=== PATIENT | female | born 1995 | race American Indian/Alaskan Native ===

== ENCOUNTER 2016-11-23 22:43 | Inpatient (IN) | payer OTHER ==
[~2016-11-23 22:43] MED LIST: Acetaminophen 325 MG Tab PO PRN; Carboprost Tromethamine 250 MCG/1 ML Amp IM PRN; Lactated Ringers 500 ML IV ONE; Lidocaine 1% 30 ML SDV INJECT PRN; Methylergonovine 0.2 MG/1 ML Amp IM PRN; Misoprostol 400 MCG (4 X 100 MCG TAB) RECTAL PRN; Sodium Chloride 0.9% 10 ML Syringe FLUSH PRN; fentaNYL 100 MCG/2 ML SDV IVPUSH PRN
--- NOTE | 2016-11-23 23:13 | HP ---
CHIEF COMPLAINT: Increased force and frequency of contractions. HISTORY OF PRESENT ILLNESS: The patient is a 21-year-old, 2, para 0-0-1 - 0, currently at 39 and 3/7 weeks of her intrauterine based on a 23- week ultrasound. The patient had presented for first care visit thinking she was approximately 12 weeks along and discovered to be much further along than that. She has had excellent care since that time. Reports that she went out for a supper gathering earlier today and around 5:00 or 6:00 she started having regular contractions that gradually have become closer and stronger together. She also felt that she was having some leakage of fluid, but no vaginal bleeding. movement has been good. Upon presentation to the hospital, nurses had checked her and nitrazine testing was equivocal. They felt that she was 100% effaced, but really could not tell exactly what her cervical dilatation was and tried to reach the patient's PCP for admission and she was unavailable, so they contacted myself and I came in for admission. The patient denies any sort of preeclampsia symptoms. No chest pain or shortness of breath. No blurry vision. No headaches. No change in swelling. No symptoms of any bladder infections or dysuria. No symptoms of any vaginal infections. Overall, is doing quite well. records reviewed, and she is blood type O positive, antibody screen negative, rubella immune, syphilis serology is nonreactive, hepatitis B negative, HIV negative, gonorrhea and chlamydia negative, hepatitis C negative, wet prep was negative. Glucose tolerance test of 122. Last hemoglobin near [place] was 9.8. Group B strep is negative. She did receive her Tdap and influenza vaccines. MEDICATIONS: 1. vitamin. 2. Iron. Denies other specific medications during this . ALLERGIES: No known drug allergies. PAST MEDICAL HISTORY: She has never smoked. She has a history of MRSA infections on the trunk, history of chickenpox when she was younger. PAST SURGICAL HISTORY: Laparoscopic appendectomy as an adult. FAMILY HISTORY: Father, maternal grandmother, and paternal grandfather with diabetes. Eczema in a cousin. Paternal grandfather with heart attack. Negative family history for allergies, asthma, bleeding problems, and anesthesia problems. SOCIAL HISTORY: She lives in [place] with her boyfriend and father of the baby, Donn Cross. 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 Donn works as a vehicle mechanic. He does use chewing tobacco and reports that he is otherwise healthy. His mother is diabetic. Otherwise, family history is negative. REVIEW OF SYSTEMS: As per the history of present illness. No recent fever, chills, nausea, vomiting, diarrhea, constipation, chest pain, shortness of breath, dysuria, irregular bowel habits, or any other problems to report. PHYSICAL EXAMINATION: Vital Signs: Blood pressure 132/71, pulse of 85, and temperature is 98.7. HEENT: Grossly unremarkable. Neck: Supple without adenopathy. HEART: Regular without murmur. Lungs: Clear to auscultation bilaterally. Abdomen: Gravid, soft, nontender. heart tones are tracing at 130 beats per minute at baseline. Moderate rkrc-cc-ysis variability. Initially nonreactive; however, after she drank a glass of water, we have a category 1 tracing. [place] is not picking up all of the contractions, but they appear to be every 3 to 5 minutes. Cervical exam per my check, she is 5 cm dilated, 100% effaced, -3 station. Bag of water remains intact. Baby is well applied to the majority of the cervix. Extremities: Full range of motion. No obvious edema neurologically. No focal deficits. Reflexes are 2+ to 3+ and equal. Skin: Warm, dry, appropriate for race. PSYCHIATRIC: She is appropriate with no obvious unusual behaviors. ASSESSMENT: 1. A 39 and 3/7th weeks' based on 23-week ultrasound. 2. 2, para 0-0-1-0. 3. Active labor. 4. Late and limited care. 5. Anemia of . 6. History of spontaneous x1. 7. Blood type O positive, rubella immune, and group B strep negative. PLAN: The patient was hoping to get through labor without an intrathecal and therefore I have offered to leave the bag of water intact at this time as that may help her achieve this goal. We will get her admitted to Labor and Delivery room, IV started, and await labs. Intrathecal I anticipate would be available to her. We could also perform artificial rupture at any time to help the labor along if she would like. Otherwise, she can get up and use the tub and ambulate fairly freely, and we will be hoping and planning for vaginal delivery. She and her boyfriend's questions have been answered at this time, and they deny any specific request. NIKI /[id number] LETY
[2016-11-24] MEDS: Ondansetron 4 MG/2 ML SDV IV PRN ×2 (01:30→07:05)
[2016-11-24] MEDS: Lactated Ringers 1,000 ML IV SCH ×2 (01:44→05:27)
[2016-11-24] MEDS ORDERED: Oxytocin/Normal Saline 30 UNIT/500 ML BAG IV SCH (06:45)
--- NOTE | 2016-11-24 08:10 | PN ---
DATE: 11/24/2016 SUBJECTIVE: The patient is resting comfortably with her intrathecal now in place. No leakage of fluid or bloody show as of yet. movement has been good. OBJECTIVE: Vital signs have remained stable and she is afebrile. heart tones are tracing at 140 beats per minute at baseline. Moderate nrms-jz-ndjy variability. Intermittent periods of nonreactivity and then areas of category 1 tracing. No decelerations. No variables. Contractions are tracing every 3 minutes consistent now on the monitoring strip. Cervix is 7 cm dilated, 95% to 100% effaced, bag of water is intact and ruptured with [place] with return of clear fluid. vertex palpates to be in PEDRO position. ASSESSMENT: 1. A 39 and 4/7th weeks in active spontaneous labor. 2. Anemia of . 3. Late care. 4. Remainder of diagnoses per the history. PLAN: The patient now has an intrathecal in place and we will continue to expectantly manage for now. On next check, if her cervix has not made sufficient progress, anticipate starting some Pitocin. MOD /[id number] LETY
[2016-11-24] MEDS ORDERED: Benzocaine/Menthol 20%-0.5% Spray 56 GM Canister TOP PRN (10:35)
[2016-11-24] MEDS ORDERED: Simethicone 80 MG Tab.Chew PO PRN (10:35)
[2016-11-24] MEDS: Docusate Sodium 100 MG Cap PO PRN (22:24)
[2016-11-24] MEDS: Ibuprofen 800 MG Tab PO PRN (22:25)
[2016-11-25] MEDS: Ibuprofen 800 MG Tab PO PRN ×2 (08:39→21:18)
[2016-11-25] MEDS: Prenatal Multivitamin with Calcium/Folic Acid/Iron Tab PO SCH (08:39)
--- NOTE | 2016-11-25 09:57 | PN ---
DATE: 11/25/2016 day #1. SUBJECTIVE: A 21-year-old 1, now para 1, status post outlet vacuum assisted vaginal delivery yesterday morning. Reports that she has been doing fairly well. Just feels really tired today. Voiding without difficulties. Passing flatus, has not yet had a bowel movement. Reports the bleeding has slowed down significantly since yesterday. No chest pain or shortness of breath. No symptoms of preeclampsia. Baby is doing well and she is having some difficulties with getting the baby to latch well for nursing. OBJECTIVE: GENERAL: Well, but tired appearing. Vital signs: Temperature is 97.8, pulse 93, blood pressure 127/65, and respiratory rate of 18. Heart: Regular without obvious murmur. Lungs: Clear to auscultation bilaterally. Abdomen: Soft without masses. Fundus is firm and 3 fingers below the umbilicus, slightly deviated off to the right. Extremities: No edema, erythema, or tenderness noted. ASSESSMENT: 1. Status post vaginal delivery day #1. 2. Status post repair of vaginal sidewall laceration and first-degree laceration. 3. mother. PLAN: Anticipate continued normal care and discharge home tomorrow. Consult forestry consultant today. Nurses will notify me if there are any other problems or concerns. [facility] /[id number]
--- NOTE | 2016-11-25 10:03 | DEL ---
DATE: 11/24/2016 PREPROCEDURE DIAGNOSES: 1. A 39-4/7th weeks intrauterine based on 23-week ultrasound. 2. 2, para 0-0-1-0. 3. History of spontaneous x1. 4. Anemia of . 5. Late and limited care. 6. Blood type O positive. Rubella immune. Group B strep negative. 7. Terminal bradycardia. POSTPROCEDURE DIAGNOSES: 1. A 39-4/7th weeks intrauterine based on 23-week ultrasound. 2. 2, para 1-0-1-1. 3. History of spontaneous x1. 4. Anemia of . 5. Late and limited care. 6. Blood type O positive. Rubella immune. Group B strep negative. 7. Terminal bradycardia. 8. Status post outlet vacuum-assisted vaginal delivery because of bradycardia. Terminal meconium noted. 9. First-degree laceration repair. 10.Left vaginal sidewall laceration repair. BRIEF HISTORY: A 21-year-old with the above-listed diagnoses, presented to the hospital in active stage of labor. Bag of water was intact and she was 5 cm dilated. After a progressing in labor to 7 cm, she received her first intrathecal and then had artificial rupture of membranes around 4 in the morning. She then went on to have a second intrathecal when her cervix was just a slight rim because she was in too much pain to focus on pushing successfully. She was allowed to labor down for a little while and then while having adequate anesthesia, but also adequate sensation for pushing. She pushed for about an hour and a half prior to actual delivery. Maternal pushing effort was excellent; however, overall quality was poor, so this did take a little bit longer than would have been anticipated. Otherwise, baby was also found to be slightly asynclitic which would have contributed to the need for increased pushing time and effort. The patient had been previously advised the potential need for vacuum delivery and we had discussed the indications, risks, benefits, and alternatives. We had discussed that she had adequate anesthesia with her intrathecal still on board. Her bladder had been emptied for about 150 mL of clear urine just prior to starting pushing. Indication in this case became the terminal bradycardia and we had turned the Pitocin up to 6 and we were coaching through contractions and she was still able to have good effort; however, with baby being asynclitic. Those pushes end up not be as effective as they should have been. The vacuum use was a Kiwi with a mushroom cap. We kept the pressure in the green zone and only pulled for about half of a contraction for total application time of about 10 seconds and had a successful delivery without any complications. Exit strategy was readily available and there was a verbal consent from the patient and her boyfriend prior to the procedure. PROCEDURE IN DETAIL: The patient delivered a viable female in the OA position with outlet vacuum assistance over intact perineum. Baby had been for quite some time and we were having intermittent terminal bradycardia, but at that time, it was down into the 60s and 70s, and sustained; therefore, vacuum applied and with pulling through about half of a contraction, we had successful vaginal delivery. Infant's mouth and nose were bulb suctioned. Three-vessel umbilical cord doubly clamped and cut and baby taken over to the warmer for further evaluation because of the noted terminal meconium. Cord blood sample was then obtained and placenta delivered by gentle cord traction and concomitant uterine massage inspected and intact. Labia and vagina inspected and she had a left sidewall laceration that was repaired with 3 - 0 Vicryl suture in a running locked fashion. She also had a first-degree posterior laceration which was repaired in standard fashion without difficulty. Overall mother tolerated procedure well. ESTIMATED BLOOD LOSS: 400 mL. COMPLICATIONS: None. DISPOSITION: Remain in the delivery room with baby at this time. [facility] /[id number] LETY
[2016-11-25] MEDS: Docusate Sodium 100 MG Cap PO PRN (21:19)
[2016-11-26] MEDS: Prenatal Multivitamin with Calcium/Folic Acid/Iron Tab PO SCH (09:35)
[2016-11-26] MEDS: Docusate Sodium 100 MG Cap PO PRN (09:35)
[2016-11-26] MEDS: Ibuprofen 800 MG Tab PO PRN (09:36)
[2016-11-26 11:04] VITALS: BP 123/70
--- NOTE | 2016-12-03 02:33 | DISCH ---
ADMITTING DIAGNOSES: 1. A 39-3/7 weeks' intrauterine based on 23-week ultrasound. 2. 2, para 0-0-1-0. 3. Blood type O positive. 4. Rubella immune. Group B Streptococcus negative. 5. History of spontaneous x1. 6. Anemia of . 7. Late care. DISCHARGE DIAGNOSES: 1. A 39-3/7 weeks' intrauterine based on 23-week ultrasound. 2. 2, para 1-0-1-1. 3. Blood type O positive. 4. Rubella immune. Group B Streptococcus negative. 5. History of spontaneous x1. 6. Anemia of . 7. Late care. 8. Terminal bradycardia. PROCEDURES PERFORMED: Intrathecal x2, artificial rupture of membranes, vacuum- assisted vaginal delivery at outlet station, first-degree laceration with repair and left lateral sidewall laceration repaired. BRIEF HISTORY: A 21-year-old female admitted to the hospital with the above- listed diagnoses. She progressed through labor quite nicely and had about 15 hours of stage I, pushed for an hour and a half and placenta delivered after about 3 minutes. See history and physical for full details as well as delivery note. Overall, delivery and labor course were uncomplicated until the baby came down to and then we had recurrent episodes of bradycardia and at one point not recovering when the head was already , so vacuum assistance was applied for less than 1 pull in order to expedite delivery. Baby did well with scores of 9 and 9. weight 3405 g, 7 pounds 8 ounces. HOSPITAL COURSE: Hospital course since delivery has been good. The patient has been ambulating, tolerating regular diet. Denies any chest pain or shortness of breath, has had no significant heavy bleeding. No symptoms of preeclampsia. No other reported complaints. She is and that seems to be going well. DISCHARGE CONDITION: Good. PHYSICAL EXAMINATION: Vital Signs: Temperature is 98.9, pulse is 97, blood pressure 123/70, respiratory rate of 16, O2 saturations 99% on room air. Heart: Regular without any murmur. Lungs: Clear to auscultation bilaterally. Abdomen: Soft without masses. Fundus is firm and below the umbilicus. Extremities: Trace edema. No erythema or tenderness noted. LABORATORY DATA: Show an admission hemoglobin of 12.4 and a discharge of 10.1. MEDICATIONS: 1. Ibuprofen 600 mg every 6 hours as needed for pain. 2. Tylenol 650 mg every 6 hours as needed for pain. 3. Colace 100 mg twice daily as needed for constipation. 4. Iron 325 mg twice daily. 5. vitamin continue 1 daily. DISPOSITION: Home with family. FOLLOWUP: Appointment with Dr. Santiago in 6 weeks for routine examination. INSTRUCTIONS: Routine post vaginal delivery instructions were provided including reasons to return to the clinic or the hospital such as increased vaginal bleeding, foul-smelling drainage, discharge, fever, chills or any other concerns if any of those arise. Her questions were answered and she was comfortable with the treatment plan. [facility] /[id number] [place]
== END 2016-11-26 14:30 | disposition home or self-care (01) | DRG 775 ==
LOC: DL.OBCHECK 22:43 → UNDOADMOB 22:48 → DL.OB 22:48 → OBSVTOIN 11-24 09:49
PROVIDERS: ADMIT Family Medicine; ATTEND Family Medicine
PROC: 10D07Z6 Extraction of Products of Conception, Vacuum, Via Natural or Artificial Opening (ICD-10-PCS; principal; 2016-11-24)
PROC: 0UQMXZZ Repair Vulva, External Approach (ICD-10-PCS; 2016-11-24)
DX: O77.0 Labor and delivery complicated by meconium in amniotic fluid (principal); O70.0 First degree perineal laceration during delivery; O66.5 Attempted application of vacuum extractor and forceps; Z3A.39 39 weeks gestation of pregnancy
CPT/HCPCS: 36415; 85014; 85018; 85027; A9270-GY; J2405; J2590; J7120

== ENCOUNTER 2018-09-27 03:33 | Inpatient (IN) | payer MEDICAID, OTHER ==
[2018-09-27] MEDS ORDERED: Lidocaine 1% 30 ML SDV INJECT PRN (04:50)
[2018-09-27] MEDS ORDERED: Lactated Ringers 500 ML IV ONE (04:50)
[2018-09-27] MEDS ORDERED: Ondansetron 4 MG/2 ML SDV IV PRN (04:50)
[2018-09-27] MEDS ORDERED: Tranexamic Acid 1,000 MG in Sodium Chloride 0.9% 100 ML IV PRN (04:50)
[2018-09-27] MEDS ORDERED: Carboprost Tromethamine 250 MCG/1 ML Amp IM PRN (04:50)
[2018-09-27] MEDS ORDERED: Acetaminophen 325 MG Tab PO PRN (04:50)
[2018-09-27] MEDS ORDERED: Misoprostol 400 MCG (4 X 100 MCG TAB) RECTAL PRN (04:50)
[2018-09-27] MEDS ORDERED: Sodium Chloride 0.9% 10 ML Syringe FLUSH PRN ×2 (04:50→09:34)
[2018-09-27] MEDS ORDERED: Methylergonovine 0.2 MG/1 ML Amp IM PRN (04:50)
[2018-09-27] MEDS ORDERED: Oxytocin/Normal Saline 30 UNIT/500 ML BAG IV SCH (05:00)
[2018-09-27] MEDS: Lactated Ringers 1,000 ML IV SCH ×2 (05:10→05:40)
[2018-09-27] MEDS ORDERED: EPINEPHrine 1 MG/ML SDV ONE (05:22)
[2018-09-27] MEDS ORDERED: fentaNYL 100 MCG/2 ML SDV ONE (05:22)
--- NOTE | 2018-09-27 05:56 | PCM.PRNOTE ---
- Free Text/Narrative Note: Requested to provide analgesia to full term patient in severe pain. Upon entering the room, patient is sitting on edge of bed complaining of severe abdominal/pelvic pain and discomfort. Procedure was discussed with patient including adverse outcomes and expectations. Pt consented to analgesia, SAB/ IT. Pt placed into a proper sitting position. Landmarks for SAB/IT were identified and marked. Hands were washed and appropriate PPE was applied. Back was prepped with betadine x3. A sterile, transparent, fenestrated drape was applied. Excess betadine was removed. Using 3 mL of a 1% lidocaine solution , a skin wheel was placed at the L2/L3 interspace. A 24 ga (4 inch) [place] spinal needle was inserted until positive for CSF. Negative for heme or paresthesias. Injected fentanyl 30 mcg, sufentanil 25 mcg, and 7.5 mg of a 0.75 % bupivacaine solution with an epi wash. Pt was placed left lateral position for approximately 20 minutes. There were zero complications or adverse outcomes. Will continue to monitor. Procedure Date & Time: 09/27/18 [id number]
[2018-09-27] MEDS ORDERED: Benzocaine/Menthol 20%-0.5% Spray 56 GM Canister TOP PRN (09:34)
[2018-09-27] MEDS ORDERED: Zolpidem 5 MG Tab PO PRN (09:34)
[2018-09-27] MEDS ORDERED: Simethicone 80 MG Tab.Chew PO PRN (09:34)
[2018-09-27] MEDS ORDERED: Measles, Mumps & Rubella Vaccine 0.5 ML SDV SUBCUT ONE (09:34)
[2018-09-27] MEDS ORDERED: Oxytocin 10 Units/1 ML SDV IM PRN (09:34)
[2018-09-27] MEDS: Ibuprofen 800 MG Tab PO PRN ×2 (12:02→21:08)
[2018-09-27] MEDS: Docusate Sodium 100 MG Cap PO PRN (21:07)
--- NOTE | 2018-09-28 08:34 | HP ---
PATIENT IDENTIFICATION: Virginia Willingham is a 22-year-old, G3, P1-0-1-1, intrauterine at 38 and 6/7 weeks by a 19 and 2/7-week ultrasound, who presents with contractions. HISTORY OF PRESENT ILLNESS: The patient states contractions started the day prior to admission, and earlier in the week, but got stronger around midnight on the date of admission to the point that they were felt in the lower abdomen, coming every 4 to 5 minutes and getting worse over time. Upon presentation, she rates her pain as 7/10, and they are severe enough that she is breathing through them. She denies any spotting, bleeding, or leaking. To put this in context, she is rubella nonimmune, has had later care and is GBS negative. She feels her contractions in the lower abdomen radiating to the back. Records were called for, reviewed as below, and supplemented by the patient's history. OBSTETRICAL HISTORY: 1. On 11/24/2016, delivered at 39 and 4/7 weeks, vacuum-assisted vaginal delivery, female, weighing 3405 g with terminal bradycardia that was not recovering. 2. Spontaneous AB at 9 and 3/7 weeks. ANTEPARTUM LABORATORY DATA: ABO blood type O positive. Negative antibody. Rubella equivocal and labeled as nonimmune in the problem list. Syphilis antibody is nonreactive. Negative hepatitis B surface antigen. Hep C, HIV, GC and chlamydia, and wet prep within normal limits. One-hour GTT was 77 on 06/30/2018, with hemoglobin 11.2 with platelets 306. GBS was negative on 09/09/2018. ALLERGIES: None. MEDICATIONS: vitamins daily. PAST MEDICAL/PAST SURGICAL HISTORY: Remarkable for laparoscopic appendectomy in 11/2011 and having history of MRSA positive cultures x3 on trunk/skin. History of chickenpox in the past. FAMILY HISTORY: Diabetes in paternal grandfather, father, and maternal grandmother. Eczema runs in the family. Heart attack in paternal grandfather with negative family history of allergies, asthma, bleeding problems, anesthesia problems, or defects. SOCIAL HISTORY: The patient lives in [place] with Thomas (her daughter) and Donn Cross. This will be their second child together, and they are engaged. She denies any alcohol, tobacco, or drug use. REVIEW OF SYSTEMS: The patient denies any headaches, visual changes, or upper abdominal pain. She denies any cough, cold, runny nose, or fever. She states she has some minimal swelling in the lower extremities and hands at times. Otherwise, review of systems was fully reviewed and felt to be noncontributory. OBJECTIVE: Vital Signs: Blood pressure 141/85, heart rate 95, and temperature 97.7 Appearance: Female, appears her stated age, acting appropriate for age, nontoxic appearance. Answering questions appropriately in between contractions, but breathing through them. HEENT: Head is atraumatic. EOMs intact. PERRLA. No scleral icterus. No obvious otorhinorrhea. Mucous membranes are moist. Neck: No obvious tenderness. Lungs: Clear to auscultation bilaterally. No increased work of breathing. Heart: S1 and S2. Regular rate and rhythm. Abdomen: Gravid. Perry's indeterminate. Nontender and nondistended. Bowel sounds positive. No other organomegaly, pulsatile masses, or hernias. No rebound, rigidity, or guarding. Genitourinary: Normal external female genitalia. Normal position and presentation of the urethra. Vaginal: Reveals to be 8 cm, 100% effaced, vertex suspected with bulging bag of water. Extremities: Trace pedal edema. Deep tendon reflexes 1 to 2/4 bilaterally and symmetric in the lower extremities. Psychiatric: Mood and affect are congruent. Judgment and insight are intact. Skin: Without any cyanosis, clubbing, or jaundice. Pelvic: heart tones in the 130s range. Accelerations have been noted. Tocometer reveals contractions every 2 to 4 minutes apart. LABORATORY DATA: PIH panel is pending with labs revealing white cell count 10.7, hemoglobin 11.8, and platelets 246. Urinalysis: Protein is negative, trace blood, small leukocyte esterase, moderate epithelial cells, few bacteria, 0 to 5 red and white cells per high-power field. Pending other labs for the PIH panel. ASSESSMENT: 1. Intrauterine at 38 and 6/7 weeks by a 19 and 2/7-week ultrasound. 2. Active labor with advanced cervical dilation. 3. Gestational hypertension versus preeclampsia. Labs are currently pending. No signs or symptoms of severe preeclampsia at this point in time. We will continue to follow clinically and closely. 4. Rubella nonimmune. 5. Later care. 6. Maternal anemia with hemoglobin 11.8 today. 7. Group B streptococcus negative. 8. 3, para 1-0-1-1. PLAN: The patient will be admitted. She is requesting intrathecal, and this has been called for and to be given as soon as [facility]IMARY arrives and evaluates the patient. We will continue to follow closely. Did discuss with her the potential artificial rupture of membranes thereafter, and she is requesting this as well. Otherwise, we will continue to follow clinically and closely. The patient understands and agrees with the above treatment plan. [facility] /[id number]
[2018-09-28] MEDS: Ibuprofen 800 MG Tab PO PRN (08:37)
[2018-09-28] MEDS: Docusate Sodium 100 MG Cap PO PRN (08:37)
[2018-09-28 08:43] VITALS: BP 121/65
--- NOTE | 2018-09-28 08:48 | PN ---
DATE: 09/27/2018 SUBJECTIVE: The patient is comfortable status post intrathecal, was going to wait to get her bag of water broken until her fiance got here, but he has not been able to find a ride and may have fallen asleep. Therefore, she is requesting artificial rupture of membranes. OBJECTIVE: Pelvic: heart tones in the 135 range. Tocometer reveals contractions every 2 to 4 minutes. Vital Signs: Blood pressure 127/73. Vaginal: Reveals to be 9 cm, 100% effaced, 0 station, vertex suspected. Artificial rupture of membranes was done after discussion with the patient yielding copious amounts of clear fluid. ASSESSMENT AND PLAN: Nearing second stage of labor, now status post artificial rupture of membranes. I did discuss with the patient following clinically and closely as well as awaiting second stage of labor and consider pushing around at that time. The patient understands and agrees with the above treatment plan. [facility] /[id number]
[2018-09-28] MEDS ORDERED: Prenatal Multivitamin with Calcium/Folic Acid/Iron Tab PO SCH (09:00)
--- NOTE | 2018-09-28 09:15 | DEL ---
DATE: 09/27/2018 PREOPERATIVE DIAGNOSES: 1. Intrauterine at 38 and 6/7 weeks by a 19 and 2/7-week ultrasound. 2. Active labor upon admission. 3. Advanced cervical dilation upon admission. 4. Gestational hypertension, suspected. 5. Rubella nonimmune. 6. Later care. 7. Maternal anemia with hemoglobin 11.8 upon admission. 8. Group B Streptococcus negative. 9. 3, para 1-0-1-1. POSTOPERATIVE DIAGNOSES: 1. Intrauterine at 38 and 6/7 weeks by a 19 and 2/7-week ultrasound, delivered. 2. Active labor upon admission. 3. Advanced cervical dilation upon admission. 4. Gestational hypertension, suspected. 5. Rubella nonimmune. 6. Later care. 7. Maternal anemia with hemoglobin 11.8 upon admission. 8. Group B Streptococcus negative. 9. 3, para 1-0-1-1. 10.Second-degree perineal laceration, repaired. PROCEDURES PERFORMED: 1. Nonstress test. 2. Artificial rupture of membranes. 3. Spontaneous vaginal delivery. 4. Second-degree perineal laceration, repaired. ANESTHESIA/ANALGESIA: The patient did receive an intrathecal in the first stage of labor. She received 1% lidocaine without epinephrine, approximately 3 mL, for a local repair with good anesthetic result. FINDINGS: Female. scores of 6 and 8. Weight pending. ESTIMATED BLOOD LOSS: 300 mL. SUMMARY OF EVENTS: The patient is a 22-year-old, G3, P1-0-1-1, intrauterine at 38 and 6/7 weeks by a 19 and 2/7-week ultrasound, admitted in active labor with advanced cervical dilation. She had hypertensive episodes. Nothing in the severe range without any headaches, visual change, or upper abdominal pain. Preeclampsia workup was done without any significant concern for diagnosis of preeclampsia with a protein-creatinine ratio of 0.15 and normal platelets and HELLP labs being negative. She requested intrathecal shortly after initial evaluation, this was subsequently given, and she was followed closely thereafter. She wished to wait until her male partner arrived prior to artificial rupture of membranes. This was subsequently attempted. However, about 2 hours after this, she requested artificial rupture of membranes. This was subsequently done. She was found to be around near-complete at that point in time. She was followed closely thereafter, started having feelings of contraction/urge to push, and I was called to the room as she was found to be complete. I donned sterile gown and gloves, and prior to this, nurse did a catheterization of the bladder yielding yellow-colored urine approximately 200 mL. Subsequently, with the patient pushing with contractions, vertex was delivered in PEDRO presentation, followed by anterior and posterior shoulder and rest of the infant without difficulty. Mouth and nares were suctioned, and infant was resuscitated on mother's abdomen/chest. Initially, good cry, color, and tone were noted. However, the infant did have some apnea and appeared cyanotic. Subsequently, the cord was doubly clamped and cut, and the was brought over to the team/warmer for further evaluation and management. After this was done, attention was made back to the patient; and approximately, 10 mL of cord blood was obtained for labs. Placenta was then delivered with gentle cord traction and fundal massage. The perineum, vagina, and perirectal areas were then examined and noted to have a second-degree perineal laceration that was subsequently anesthetized and repaired in the usual fashion using 3-0 Vicryl. Mother and are currently stable at the time of dictation. [facility] /[id number]
--- NOTE | 2018-09-28 10:27 | OBOUT ---
DATE: 09/27/2018 DATE AND TIME OF NST: Date: 09/27/2018 Time: 4:17 to 4:33. REASON FOR NST: 1. Intrauterine at 38 and 6/7 weeks by a 19 and 2/7-week ultrasound. 2. Active labor with advanced cervical dilation. 3. Gestational hypertension versus preeclampsia. 4. Rubella nonimmune. 5. Later care. 6. Maternal anemia with hemoglobin 11.8 upon admission. 7. Group B streptococcus negative. 8. 3, para 1-0-1-1. NST INTERPRETATION: During this time period, heart tone baseline is approximately 130 and there are at least two 15 x 15 beat per minute accelerations making this strip reactive. It is also noted to be reassuring. Tocometer reveals potential 6 contractions during this time period felt by the patient. ASSESSMENT: 1. Nonstress test, reactive and reassuring. 2. Tocometer with contractions. PLAN: Please see admit history and physical for further details. [facility] /[id number]
[2018-09-28] MEDS ORDERED: EPINEPHrine 1 MG/ML SDV ONE (10:59)
[2018-09-28] MEDS ORDERED: Bupivacaine 0.75%/D5W 2 ML Amp ONE (10:59)
[2018-09-28] MEDS ORDERED: fentaNYL 100 MCG/2 ML SDV ITHECAL ONE (10:59)
--- NOTE | 2018-09-28 10:59 | PCM.DCSUM1 ---
Discharge Summary - Hospital Course Free Text/Narrative:: 22-year-old, now , PPD #1 status post at 38w6d Diagnosis: Stroke: No - Discharge Data Discharge Date: 09/28/18 Discharge Disposition: Home, Self-Care 01 Condition: Good - Patient Summary/Data Operative Procedure(s) Performed: None Complications: None Consults: None Labs Pending at D/C: None Recommended Follow-up Testing/Procedures: None Planned Operative Procedure(s) after DC: None Hospital Course: Unremarkable. Please see subjective section. - Patient Instructions Diet: Regular Diet as Tolerated, Drink 8-10+ Glasses/Day Activity: As Tolerated Driving: May Drive Today Showering/Bathing: May Shower Notify Provider of: Fever, Increased Pain, Nausea and/or Vomiting - Discharge Plan *PRESCRIPTION DRUG MONITORING PROGRAM REVIEWED*: Not Applicable *COPY OF PRESCRIPTION DRUG MONITORING REPORT IN PATIENT FELICIA: Not Applicable Home Medications: Home Meds Ferrous Sulfate [Iron] 325 mg PO DAILY 11/23/16 [History] PNV95/Ferrous Fumarate/FA [ Tablet] 1 each PO DAILY 11/23/16 [History] Acetaminophen [Tylenol] 650 mg PO Q4H PRN #0 tablet 11/25/16 [Rx] Docusate Sodium [Colace] 100 mg PO BID PRN #0 cap 11/25/16 [Rx] Ibuprofen [Motrin] 800 mg PO Q8H PRN tablet 09/28/18 [Rx] Patient Handouts: Home Care Instructions for Mom, Vaginal Delivery, Care After , Care of a Perineal Tear - Discharge Summary/Plan Comment DC Time >30 min.: No Discharge Summary/Plan Comment: Discharge home today. Follow-up in 6-8 weeks for routine visit. Reasons to present to clinic or ED were reviewed with the patient. She has no concerns today, and all questions were answered. - General Info Date of Service: 09/28/18 Subjective Update: Patient is doing well today. She reports her vaginal bleeding has decreased. No dizziness or lightheadedness with ambulation. She is voiding without difficulty. She has passed gas but has not had a bowel movement. She states that breast-feeding is going well. Baby is latching without difficulty. She was a little concerned that baby was eating constantly but otherwise feels that things are going well. No fevers, chills, nausea, or vomiting. She is tolerating a general diet. No concerns per patient per nursing. Functional Status: Reports: Pain Controlled, Tolerating Diet, Ambulating, Urinating - Review of Systems General: Reports: No Symptoms HEENT: Reports: No Symptoms Pulmonary: Reports: No Symptoms Cardiovascular: Reports: No Symptoms Gastrointestinal: Reports: No Symptoms Genitourinary: Reports: No Symptoms Musculoskeletal: Reports: No Symptoms Skin: Reports: No Symptoms Neurological: Reports: No Symptoms Psychiatric: Reports: No Symptoms - Patient Data Vitals - Most Recent: Last Vital Signs Temp 36.5 C 09/28/18 08:00 Pulse 72 09/28/18 08:00 Resp 16 09/28/18 08:00 BP 121/65 09/28/18 08:00 Pulse Ox 100 09/27/18 21:00 Weight - Most Recent: 80.286 kg Lab Results - Last 24 hrs: Laboratory Results - last 24 hr 09/28/18 Range/Units 06:12 WBC 12.1 H (5.0-10.0) 10^3/uL RBC 3.72 L (4.2-5.4) 10^6/uL Hgb 10.4 L (12.0-16.0) g/dL Hct 32.6 L (37.0-47.0) % MCV 87.6 (80-100) fL MCH 28.0 (27.0-34.0) pg MCHC 31.9 L (33.0-35.0) g/dL Plt Count 222 (150-450) 10^3/uL Med Orders - Current: Current Medications Acetaminophen (Tylenol) 650 mg PO Q4H PRN PRN Reason: Pain (Mild 1-3) and fever Benzocaine/Menthol (Dermoplast Pain Relief Qulin) 0 gm TOP Q4H PRN PRN Reason: Perineal comfort measures Last Admin: 09/27/18 12:02 Dose: 1 spray Carboprost Tromethamine (Hemabate Ds) 250 mcg IM ASDIRECTED PRN PRN Reason: HEMORRHAGE Docusate Sodium (Colace) 100 mg PO BID PRN PRN Reason: Constipation Last Admin: 09/28/18 08:37 Dose: 100 mg Tranexamic Acid 1,000 mg/ (Sodium Chloride) 110 mls @ 660 mls/hr IV ONETIME PRN PRN Reason: Bleeding Lactated Ringer's (Ringers, Lactated) 1,000 mls @ 125 mls/hr IV ASDIRECTED KOBY Last Admin: 09/27/18 05:40 Dose: 125 mls/hr Oxytocin/Sodium Chloride (Pitocin In Ns 30 Unit/500 Ml) 30 unit in 500 mls @ 2 mls/hr IV TITRATE KOBY; Protocol Last Titration: 09/27/18 12:25 Dose: Infused Ibuprofen (Motrin) 800 mg PO Q8H PRN PRN Reason: Mild Pain or Fever Last Admin: 09/28/18 08:37 Dose: 800 mg Lidocaine HCl (Xylocaine-Mpf 1%) 30 ml INJECT ASDIRECTED PRN PRN Reason: Perineal Repair Last Admin: 09/27/18 09:20 Dose: 30 ml Methylergonovine Maleate (Methergine) 0.2 mg IM ASDIRECTED PRN PRN Reason: Hemorrhage Misoprostol (Cytotec) 800 mcg RECTAL ASDIRECTED PRN PRN Reason: Hemorrhage Ondansetron HCl (Zofran) 4 mg IV Q4H PRN PRN Reason: Nausea/Vomiting Last Admin: 09/27/18 06:19 Dose: 4 mg Oxytocin (Pitocin) 10 unit IM ONETIME PRN PRN Reason: Bleeding Prenat Multivit/Bilingual Recruiter/Iron/Folic Ac ( Plus Iron) 1 each PO DAILY KOBY Last Admin: 09/28/18 08:36 Dose: 1 each Simethicone (Simethicone) 80 mg PO Q4H PRN PRN Reason: Gas Last Admin: 09/27/18 21:07 Dose: 80 mg Sodium Chloride (Saline Flush) 10 ml FLUSH ASDIRECTED PRN PRN Reason: Keep Vein Open Sodium Chloride (Saline Flush) 10 ml FLUSH ASDIRECTED PRN PRN Reason: Keep Vein Open Zolpidem Tartrate (Ambien) 5 mg PO BEDTIME PRN PRN Reason: Insomnia Discontinued Medications Epinephrine HCl (Adrenalin) Confirm Administered Dose 1 mg .ROUTE .STK-MED ONE Stop: 09/27/18 05:23 Last Admin: 09/27/18 06:20 Dose: Not Given Fentanyl (Sublimaze) Confirm Administered Dose 100 mcg .ROUTE .STK-MED ONE Stop: 09/27/18 05:23 Last Admin: 09/27/18 06:21 Dose: Not Given Lactated Ringer's (Ringers, Lactated) 500 mls @ 500 mls/hr IV .BOLUS ONE Stop: 09/27/18 05:49 Last Admin: 09/27/18 04:35 Dose: 500 mls/hr Measles/Mumps/Rubella Vaccine Live (M-M-R Ii Vaccine) 0.5 ml SUBCUT .ONCE ONE Stop: 09/27/18 09:35 Last Admin: 09/27/18 21:09 Dose: 0.5 ml Sufentanil Citrate (Sufenta) Confirm Administered Dose 50 mcg .ROUTE .STK-MED ONE Stop: 09/27/18 05:23 Last Admin: 09/27/18 06:21 Dose: Not Given - Exam General: Reports: Alert, Oriented Lungs: Reports: Clear to Auscultation, Normal Respiratory Effort Cardiovascular: Reports: Regular Rate, Regular Rhythm, No Murmurs GI/Abdominal Exam: Soft, Non-Tender Extremities: No Pedal Edema Skin: Reports: Warm, Dry, Intact
== END 2018-09-28 11:00 | disposition home or self-care (01) | DRG 807 ==
LOC: DL.OBCHECK 03:33 → DL.OB 04:25 → EEVIPCON 09:16 → OBSVTOIN 09:16 → DL.OB 09:16
PROVIDERS: ADMIT Family Medicine; ATTEND Family Medicine
PROC: 10907ZC Drainage of Amniotic Fluid, Therapeutic from Products of Conception, Via Natural or Artificial Opening (ICD-10-PCS; principal; 2018-09-27)
PROC: 10E0XZZ Delivery of Products of Conception, External Approach (ICD-10-PCS; principal; 2018-09-27)
PROC: 3E0R3BZ Introduction of Anesthetic Agent into Spinal Canal, Percutaneous Approach (ICD-10-PCS; principal; 2018-09-27)
PROC: 6A550ZT Pheresis of Cord Blood Stem Cells, Single (ICD-10-PCS; principal; 2018-09-27)
PROC: 0KQM0ZZ Repair Perineum Muscle, Open Approach (ICD-10-PCS; principal; 2018-09-27)
DX: O13.4 Gestational [pregnancy-induced] hypertension without significant proteinuria, complicating childbirth (principal); Z37.0 Single live birth; Z3A.38 38 weeks gestation of pregnancy; O70.1 Second degree perineal laceration during delivery; O99.02 Anemia complicating childbirth; D64.9 Anemia, unspecified
CPT/HCPCS: 01967; 36415; 51701; 59025; 59409; 81001; 82565; 82570; 83615; 84156; 84450; 84460; 84520; 84550; 85027; 90707; A9270-GY; J0171; J2405; J2590; J3010; J7120